=== PATIENT | female | born 1990 | race American Indian/Alaskan Native ===

== ENCOUNTER 2016-05-11 23:36 | Emergency (ER) | payer BC ==
[2016-05-12 00:50] VITALS: BP 121/67
[2016-05-12 01:10] LABS: Blood Urea Nitrogen 6 mg/dL (7-17); Calcium 8.8 mg/dL (8.4-10.2); Carbon Dioxide 22 mmol/L (22-30); Glucose 101 mg/dL (65-100); Potassium 3.9 mmol/L (3.6-5.0); Sodium 135 mmol/L (137-145)
[2016-05-12 01:12] LABS: Basophils % (Auto) 0.2 % (0.0-1.8); Eosinophils % (Auto) 0.3 % (0.0-4.3); Mean Corpuscular HGB Conc 29 % (30-34); Platelet Count 437 K/mm3 (140-440); Red Blood Count 4.81 M/mm3 (3.65-5.03); Red Cell Distribution Width 19.9 % (13.2-15.2); White Blood Count 11.2 K/mm3 (4.5-11.0)
[2016-05-12 01:14] LABS: Anion Gap 16 mmol/L
[2016-05-12 01:22] LABS: Hematocrit 29.1 % (30.3-42.9); Hemoglobin 8.4 gm/dl (10.1-14.3); Mean Corpuscular Hemoglobin 18 pg (28-32); Mean Corpuscular Volume 61 fl (79-97)
[2016-05-12 01:34] LABS: Mucus,Urine 3+ /HPF
[2016-05-12 01:44] LABS: Bacteria,Urine 1+ /HPF (Negative); Bilirubin,Urine NEG (Negative); Blood,Urine NEG (Negative); Ketones,Urine TR mg/dL (Negative); Leukocyte Esterase,Urine TR (Negative); Nitrite,Urine NEG (Negative)
--- NOTE | 2016-05-14 15:42 | ED Elopement Review ---
ED Pt Elopement review - Results review Lab results: Laboratory Tests 05/12/16 05/12/16 05/12/16 00:45 00:45 00:45 WBC 11.2 H RBC 4.81 Hgb 8.4 L Hct 29.1 L MCV 61 L MCH 18 L MCHC 29 L RDW 19.9 H Plt Count 437 Lymph % (Auto) 18.7 [place] % (Auto) 5.3 Eos % (Auto) 0.3 Baso % (Auto) 0.2 Lymph # 2.1 [place] # 0.6 Eos # 0.0 Baso # 0.0 Seg Neutrophils % 75.5 H Seg Neutrophils # 8.5 H Sodium 135 L Potassium 3.9 Chloride 101.0 Carbon Dioxide 22 Anion Gap 16 BUN 6 L Creatinine 0.4 L Estimated GFR > 60 BUN/Creatinine Ratio 15.00 Glucose 101 H Calcium 8.8 HCG, Quant [id number] H Urine Color Urine Turbidity Urine pH Ur Specific [place] Urine Protein Urine Glucose (UA) Urine Ketones Urine Blood Urine Nitrite Ur Reducing Substances Urine Bilirubin Urine Ictotest Urine Urobilinogen Ur Leukocyte Esterase Urine WBC (Auto) Urine RBC (Auto) U Epithel Cells (Auto) Urine Bacteria (Auto) Urine Mucus 05/12/16 00:46 WBC RBC Hgb Hct MCV MCH MCHC RDW Plt Count Lymph % (Auto) [place] % (Auto) Eos % (Auto) Baso % (Auto) Lymph # [place] # Eos # Baso # Seg Neutrophils % Seg Neutrophils # Sodium Potassium Chloride Carbon Dioxide Anion Gap BUN Creatinine Estimated GFR BUN/Creatinine Ratio Glucose Calcium HCG, Quant Urine Color [place] Urine Turbidity Slightly-cloudy Urine pH 5.0 Ur Specific [place] 1.027 Urine Protein 30 mg/dl Urine Glucose (UA) Neg Urine Ketones Tr Urine Blood Neg Urine Nitrite Neg Ur Reducing Substances Not Reportable Urine Bilirubin Neg Urine Ictotest Not Reportable Urine Urobilinogen 2.0 Ur Leukocyte Esterase Tr Urine WBC (Auto) 1.0 Urine RBC (Auto) 4.0 U Epithel Cells (Auto) 16.0 H Urine Bacteria (Auto) 1+ Urine Mucus 3+ - Call Back decision Pt Call Back Decision: No action required
== END 2016-05-12 19:52 | disposition left against medical advice (07) ==
LOC: ED 23:36
DX: R11.2 Nausea with vomiting, unspecified (principal); R53.1 Weakness; R42 Dizziness and giddiness; Z53.21 Procedure and treatment not carried out due to patient leaving prior to being seen by health care provider
CPT/HCPCS: 36415; 80048; 81001; 84702; 85025

== ENCOUNTER 2016-10-24 20:40 | Outpatient (CLI) | payer BC, MEDICAID ==
[2016-10-24 21:13] VITALS: BP 120/64
[2016-10-24] MEDS ORDERED: LACTATED RINGERS 500 ML IV ONE (23:00)
[2016-10-24 23:26] LABS: Bilirubin,Urine NEG (Negative); Blood,Urine NEG (Negative); Ketones,Urine NEG (Negative); Leukocyte Esterase,Urine TR (Negative); Mucus,Urine FEW /HPF; Nitrite,Urine NEG (Negative); Protein,Urine <15 mg/dL mg/dL (Negative)
== END 2016-10-24 23:25 | disposition home or self-care (01) ==
LOC: TRG 20:40
PROVIDERS: ATTEND Obstetrics & Gynecology
DX: O26.893 Other specified pregnancy related conditions, third trimester (principal); Z3A.33 33 weeks gestation of pregnancy; R10.9 Unspecified abdominal pain
CPT/HCPCS: 81001; J7120; 59025

== ENCOUNTER 2016-11-01 22:42 | Outpatient (CLI) | payer BC, MEDICAID ==
[2016-11-01] MEDS ORDERED: LACTATED RINGERS 500 ML IV ONE (23:40)
[2016-11-02 00:11] LABS: Bilirubin,Urine NEG (Negative); Blood,Urine NEG (Negative); Ketones,Urine NEG (Negative); Leukocyte Esterase,Urine MOD (Negative); Mucus,Urine FEW /HPF; Nitrite,Urine NEG (Negative); Protein,Urine <15 mg/dL mg/dL (Negative)
[2016-11-02] MEDS ORDERED: BRETHINE SUB-Q ONE ×2 (00:41→00:50)
[2016-11-02] MEDS ORDERED: BRETHINE ONE (00:42)
[2016-11-02 00:46] VITALS: BP 118/63
== END 2016-11-02 01:12 | disposition home or self-care (01) ==
LOC: TRG 22:42
PROVIDERS: ATTEND Obstetrics & Gynecology Gynecology
DX: O26.893 Other specified pregnancy related conditions, third trimester (principal); R10.9 Unspecified abdominal pain; Z3A.35 35 weeks gestation of pregnancy
CPT/HCPCS: 81001; 96360; 96372; J3105; J7120

== ENCOUNTER 2018-09-28 16:37 | Emergency (ER) | payer SELFPAY ==
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
[2018-09-28 17:19] VITALS: BP 155/62
[2018-09-28 17:46] LABS: Bilirubin,Urine NEG (Negative); Blood,Urine NEG (Negative); Color,Urine Yellow (Yellow); Mucus,Urine 1+ /HPF; Protein,Urine <15 mg/dL mg/dL (Negative)
[2018-09-28 17:47] LABS: HCG Qualitative,Urine Negative (Negative)
--- NOTE | 2018-09-28 20:38 | Cat Scan Report ---
PROCEDURE: CT LUMBAR SPINE WO CON TECHNIQUE: Computerized axial tomography of the lumbar spine was performed from T12 to the sacrum wi thout contrast material. CT DOSE LENGTH PRODUCT: 901.2 mGycm HISTORY: back pain/injury COMPARISONS: None . FINDINGS: Vertebral height and alignment are within normal limits. L1-2: No significant abnormality . L2-3: No significant abnormality . L3-4: No significant abnormality . L4-5: No significant abnormality . L5-S1: No significant abnormality . Other: None . IMPRESSION: No significant abnormality . This document is electronically signed by Duc Ordoñez MD., Sep 28 2018 08:36:20 PM ET
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
== END 2018-09-28 21:15 | disposition home or self-care (01) ==
LOC: ED 16:37
DX: M54.5 Low back pain (principal); G89.29 Other chronic pain
CPT/HCPCS: 72131; 81001; 81025